=== PATIENT | female | born 1985 | race Hispanic/Latino ===

== ENCOUNTER 2017-12-24 11:36 | Observation (INO) | payer MEDICAID ==
[~2017-12-24] VITALS: Ht 152.4 cm; Wt 84.4 kg
[2017-12-24 12:45] LABS: APPEARANCE,URINE Clear (CLEAR); BILIRUBIN,URINE Negative (NEGATIVE); COLOR,URINE Yellow (YELLOW); GLUCOSE, URINE (UA) Negative (NEGATIVE); KETONES,URINE Negative (NEGATIVE); LEUKOCYTE ESTERASE ,URINE Trace (NEGATIVE); NITRATE,URINE Negative (NEGATIVE); OCCULT BLOOD,URINE Negative (NEGATIVE); PH,URINE 5.5 (5.0-8.0); PROTEIN,URINE Negative (NEGATIVE); UROBILINOGEN,URINE 0.2 mg/dL (0.2-1.0)
[2017-12-24 12:50] LABS: BACTERIA,URINE Rare /HPF (None Seen); RBC,URINE 0-1 /HPF (0-1); SQUAMOUS EPITHELIAL CELL,UR Rare /HPF (0-2); WBC,URINE 0-1 /HPF (0-1)
[2017-12-24 14:16] VITALS: BP 112/68
== END 2017-12-24 15:58 | disposition home or self-care (01) ==
LOC: LDH 11:36
PROVIDERS: ADMIT Specialist; ATTEND Specialist
DX: O36.8130 Decreased fetal movements, third trimester, not applicable or unspecified (principal); Z3A.35 35 weeks gestation of pregnancy
CPT/HCPCS: 76819; 81001; G0378 ×5; J7120; 96360; 96361

== ENCOUNTER 2018-01-08 12:53 | Observation (INO) | payer MEDICAID ==
[2018-01-08] MEDS: LACTATED RINGERS 1000ML IV SCH ×2 (13:50→14:50)
[2018-01-08 13:52] LABS: APPEARANCE,URINE Cloudy (CLEAR); BILIRUBIN,URINE Negative (NEGATIVE); COLOR,URINE Yellow (YELLOW); GLUCOSE, URINE (UA) Negative (NEGATIVE); KETONES,URINE Negative (NEGATIVE); LEUKOCYTE ESTERASE ,URINE Trace (NEGATIVE); NITRATE,URINE Negative (NEGATIVE); OCCULT BLOOD,URINE Nonhemolyzed Trace (NEGATIVE); PROTEIN,URINE Negative (NEGATIVE); UROBILINOGEN,URINE 0.2 mg/dL (0.2-1.0)
[2018-01-08 14:25] LABS: BACTERIA,URINE Rare /HPF (None Seen); MUCUS,URINE Rare LPF (None Seen); RBC,URINE 0-1 /HPF (0-1); SQUAMOUS EPITHELIAL CELL,UR Moderate /HPF (0-2)
[2018-01-09] MEDS ORDERED: PREN1COM14 PO (12:20)
[2018-01-09] MEDS ORDERED: METF-444 PO (12:20)
[2018-01-09] MEDS ORDERED: LABE100T5 PO (12:26)
== END 2018-01-08 15:45 | disposition home or self-care (01) ==
LOC: LDH 12:53
DX: O46.93 Antepartum hemorrhage, unspecified, third trimester (principal); O26.893 Other specified pregnancy related conditions, third trimester; R10.30 Lower abdominal pain, unspecified; Z3A.37 37 weeks gestation of pregnancy
CPT/HCPCS: 81001; G0378 ×4; J7120; 96360; 96361

== ENCOUNTER 2023-05-06 10:46 | Emergency (ER) | payer MEDICAID, OTHER ==
[~2023-05-06] VITALS: Ht 152.4 cm; Wt 77.1 kg
[~2023-05-06 10:46] MED LIST: LABE100T7 PO; METF-444 PO; PREN1COM14 PO
[2023-05-06 10:59] VITALS: BP 150/100; PULSE 93; RESP 16
[2023-05-06] MEDS ORDERED: IBUP-2070 PO (12:42)
[2023-05-06] MEDS ORDERED: METH4TAB3 PO (12:42)
== END 2023-05-06 12:57 | disposition home or self-care (01) ==
LOC: EDH 10:46
DX: G56.01 Carpal tunnel syndrome, right upper limb (principal); M25.531 Pain in right wrist; M25.511 Pain in right shoulder; M25.521 Pain in right elbow; G43.909 Migraine, unspecified, not intractable, without status migrainosus; Z79.84 Long term (current) use of oral hypoglycemic drugs; Z79.899 Other long term (current) drug therapy; Z98.890 Other specified postprocedural states; Z88.8 Allergy status to other drugs, medicaments and biological substances; V89.2XXA Person injured in unspecified motor-vehicle accident, traffic, initial encounter; Y93.I9 Activity, other involving external motion; Y92.488 Other paved roadways as the place of occurrence of the external cause; Y99.8 Other external cause status
CPT/HCPCS: 29125; 73030; 73070; 73100; 73120